=== PATIENT | female | born 1985 ===

== ENCOUNTER 2021-04-21 09:38 | Day surgery (SDC) | payer OTHER ==
[~2021-04-21 09:38] MED LIST: ZYRTEC10 M3 PO
[2021-04-21] MEDS ORDERED: NAPROXEN SODIU500 M1 PO (15:51)
[2021-04-21] MEDS ORDERED: DOXYCYCLINE HY100 M2 PO (15:52)
== END 2021-04-21 19:10 | disposition home or self-care (01) ==
LOC: CIR.AMB 09:38 → EDBD 12:30 → CIR.AMB 14:15
PROVIDERS: ATTEND Obstetrics & Gynecology
DX: D25.0 Submucous leiomyoma of uterus (principal); Z20.822 Contact with and (suspected) exposure to COVID-19